=== PATIENT | female | born 1945 | race Caucasian/White ===

== ENCOUNTER → 2016-08-23 | Outpatient (CLI) | payer OTHER ==
[~2016-08-23] MED LIST: ASCAUNK PO; ASPCH81X PO; ATOR-22 PO; CLOP1TAB15 PO; DYZ PO; LORA10TA5 PO; METO25TA56 PO; OMEP20CA9 PO; [UNRECOGNIZED DRUG - CODE] PO
[2016-08-23 11:50] LABS: ALT/SGPT 36 U/L (12-78); AST/SGOT 27 U/L (15-37); BLOOD UREA NITROGEN 13 mg/dl (7-18); BUN/CREATININE RATIO 12.1 (10-20); CALCIUM 9.7 mg/dl (8.5-10.1); CARBON DIOXIDE 29 mmol/L (21-32); CHLORIDE 101 mmol/L (98-107); GLUCOSE 112 mg/dl (70-99); POTASSIUM 3.3 mmol/L (3.5-5.1); SODIUM 141 mmol/L (136-145)
[2016-08-23 11:53] LABS: CHOLESTEROL 220 mg/dl (0-200); CHOLESTEROL/HDL RATIO 3.5; HDL CHOLESTEROL 63 mg/dl; LDL CHOLESTEROL CALCULATED 123 mg/dl; TRIGLYCERIDES 171 mg/dl (0-150); VERY LOW DENSITY LIPOPROT CALC 34 mg/dl
== END | disposition home or self-care (01) ==
LOC: C.LABBC 07:41
PROVIDERS: ATTEND Internal Medicine
DX: I10 Essential (primary) hypertension (principal); E78.5 Hyperlipidemia, unspecified; I25.10 Atherosclerotic heart disease of native coronary artery without angina pectoris

== ENCOUNTER → 2016-10-11 | Outpatient (CLI) | payer OTHER | END | disposition home or self-care (01) | LOC: C.PATHSPEC 17:41 | PROVIDERS: ATTEND Orthopaedic Surgery | DX: R22.31 Localized swelling, mass and lump, right upper limb (principal); M77.8 Other enthesopathies, not elsewhere classified ==

== ENCOUNTER → 2016-12-05 | Outpatient (CLI) | payer OTHER ==
--- NOTE | 2016-12-05 15:14 | DIAGNOSTIC IMAGING REPORT ---
CT OF THE HEAD WITHOUT CONTRAST CLINICAL HISTORY: BLURRED VISION, CHANGE MENTAL STATUS, HEAD TRAUMA COMPARISON STUDY: No previous studies for comparison. CT DOSE: 638.56 mGycm TECHNIQUE: Helical axial images of the head were obtained without IV contrast. Automated exposure control was utilized for the study. FINDINGS: No acute intracranial hemorrhage, midline shift or mass effect is present. Ventricular system is normal. Basilar cisterns are patent. There are no extra-axial collections. Blair-white differentiation is maintained. There are no findings to suggest acute dural sinus thrombosis or acute territorial infarct. There is no calvarial fracture. IMPRESSION: 1. No acute intracranial findings. 2. No calvarial fracture. Electronically signed by: Venkat Duvall M.D. 12/05/2016 3:13 PM Dictated Date/Time: 12/05/2016 3:05 PM
== END | disposition home or self-care (01) ==
LOC: C.CTS 14:19
PROVIDERS: ATTEND Internal Medicine
DX: H53.8 Other visual disturbances (principal); R41.82 Altered mental status, unspecified; R42 Dizziness and giddiness; S09.90XA Unspecified injury of head, initial encounter; X58.XXXA Exposure to other specified factors, initial encounter; R51 Headache

== ENCOUNTER → 2017-07-09 | Outpatient (CLI) | payer OTHER ==
[~2017-07-09] MED LIST changes: -LORA10TA5 PO; +LORA10TA6 PO
[2017-07-09 11:05] LABS: ALT/SGPT 21 U/L (12-78); BLOOD UREA NITROGEN 18 mg/dl (7-18); BUN/CREATININE RATIO 19.6 (10-20); CALCIUM 9.8 mg/dl (8.5-10.1); CARBON DIOXIDE 31 mmol/L (21-32); CHLORIDE 100 mmol/L (98-107); CHOLESTEROL 276 mg/dl (0-200); GLUCOSE 114 mg/dl (70-99); POTASSIUM 3.6 mmol/L (3.5-5.1); SODIUM 136 mmol/L (136-145); TRIGLYCERIDES 159 mg/dl (0-150); VERY LOW DENSITY LIPOPROT CALC 32 mg/dl
[2017-07-09 11:08] LABS: ALKALINE PHOSPHATASE 102 U/L (45-117); AST/SGOT 18 U/L (15-37); CHOLESTEROL/HDL RATIO 4.3; HDL CHOLESTEROL 64 mg/dl; LDL CHOLESTEROL CALCULATED 180 mg/dl
[2017-07-09 12:17] LABS: ESTIMATED AVERAGE GLUCOSE 126 mg/dl; HA1C FLAG Normal (Normal)
== END | disposition home or self-care (01) ==
LOC: C.LABBC 08:48
PROVIDERS: ATTEND Internal Medicine Cardiovascular Disease
DX: E78.5 Hyperlipidemia, unspecified (principal); R73.09 Other abnormal glucose

== ENCOUNTER → 2017-07-09 | Outpatient (CLI) | payer OTHER | END | disposition home or self-care (01) | LOC: C.PATHSPEC 10:39 | PROVIDERS: ATTEND Dentist Endodontics | DX: K04.8 Radicular cyst (principal) ==